=== PATIENT | male | born 1975 | race Caucasian/White ===

== ENCOUNTER 2019-11-07 09:31 | Outpatient (CLI) | payer OTHER ==
[2019-11-07] MEDS ORDERED: No meds per pt. (09:56)
== END 2019-11-07 23:59 | disposition home or self-care (01) ==
LOC: STAR 09:31
PROVIDERS: ATTEND Thoracic Surgery (Cardiothoracic Vascular Surgery)
DX: Z02.9 Encounter for administrative examinations, unspecified (principal)

== ENCOUNTER 2019-11-13 06:07 | Day surgery (SDC) | payer MEDICARE, OTHER ==
[2019-11-07 09:57] VITALS: BP 150/84
[~2019-11-13] VITALS: Ht 193 cm; Wt 103.7 kg
[~2019-11-13 06:07] MED LIST: No meds per pt.
[2019-11-13] MEDS ORDERED: BUPIVACAINE/PF 0.5% ONE (06:45)
[2019-11-13] MEDS ORDERED: EPINEPHRINE 1 MG/ML, 1ML ONE (06:45)
[2019-11-13] MEDS ORDERED: LACTATED RINGERS 1,000 ML IV SCH ×2 (07:15→09:42)
[2019-11-13] MEDS ORDERED: MIDAZOLAM 1 MG/ML, 2ML ONE (07:52)
[2019-11-13] MEDS ORDERED: FENTANYL PF 250 MCG/5ML ONE (07:52)
[2019-11-13] MEDS ORDERED: DEXAMETHASONE 4 MG/ML, 1ML ONE (08:39)
[2019-11-13] MEDS ORDERED: SUGAMMADEX 200 MG/2 ML IVPush ONE (08:39)
[2019-11-13] MEDS ORDERED: CEFAZOLIN 1,000 MG ONE (08:39)
[2019-11-13] MEDS ORDERED: ROCURONIUM 10 MG/ML,10ML ONE (08:39)
[2019-11-13] MEDS ORDERED: KETOROLAC 30 MG/1 ML ONE (08:39)
[2019-11-13] MEDS ORDERED: ONDANSETRON 2MG/ML, 2ML ONE (08:39)
[2019-11-13] MEDS ORDERED: SUCCINYLCHOLINE 20 MG/ML, 10ML ONE (08:39)
[2019-11-13] MEDS ORDERED: PROPOFOL 10 MG/ML, 20ML ONE (08:39)
[2019-11-13] MEDS ORDERED: KETOROLAC 30 MG/1 ML IV PRN (09:00)
[2019-11-13] MEDS ORDERED: ALBUTEROL SULFATE 2.5 MG/3 ML NPPB PRN (09:00)
[2019-11-13] MEDS ORDERED: PROMETHAZINE 25 MG/ML, 1ML IV PRN (09:00)
[2019-11-13] MEDS ORDERED: MEPERIDINE/PF 25MG/0.5ML IVPush PRN (09:00)
[2019-11-13] MEDS ORDERED: hydrALAzine 20 MG/ML, 1ML IV PRN (09:00)
[2019-11-13] MEDS ORDERED: LABETALOL 5MG/ML, 20ML IV PRN (09:00)
[2019-11-13] MEDS ORDERED: METOCLOPRAMIDE 5 MG/ML, 2ML IV PRN (09:00)
[2019-11-13] MEDS ORDERED: HYDROmorphone 1 MG/ML, 1ML INJ IV PRN (09:00)
[2019-11-13] MEDS ORDERED: FENTANYL PF 100 MCG/2ML IV PRN (09:00)
[2019-11-13] MEDS ORDERED: ONDANSETRON 2MG/ML, 2ML IVPush PRN ×2 (09:00→10:00)
[2019-11-13] MEDS ORDERED: DIAZEPAM 5 MG/ML, 2ML IV PRN ×2 (09:00)
[2019-11-13] MEDS ORDERED: OXYcodone 5 MG/5 ML ORAL.SOL UDC PO PRN (09:00)
[2019-11-13] MEDS ORDERED: ACETAMINOPHEN 650 MG/20.3 ML UDC ONE (09:58)
[2019-11-13] MEDS ORDERED: morphine SULFATE 10 MG/ML, 1ML IVPush PRN (10:00)
[2019-11-13] MEDS ORDERED: HYDROcodone/APAP 5/325 TABLET PO PRN (10:00)
[2019-11-13] MEDS ORDERED: ACETAMINOPHEN 650 MG/20.3 ML UDC PO PRN (10:00)
== END 2019-11-13 11:15 | disposition home or self-care (01) ==
LOC: OUT 06:07
PROVIDERS: ATTEND Thoracic Surgery (Cardiothoracic Vascular Surgery)
DX: K40.90 Unilateral inguinal hernia, without obstruction or gangrene, not specified as recurrent (principal); Z72.89 Other problems related to lifestyle; Z87.891 Personal history of nicotine dependence
CPT/HCPCS: 49650; C1781; J0171; J0330; J0690; J1100; J1885; J2250; J2405; J2704; J3010; J7120

== ENCOUNTER 2020-09-26 11:43 | Emergency (ER) | payer OTHER ==
[~2020-09-26] VITALS: Ht 182.9 cm; Wt 106.6 kg
--- NOTE | 2020-09-26 12:00 | NUR ---
LEFT FLANK PAIN STARTED TWO HOURS
[2020-09-26] MEDS ORDERED: ONDANSETRON 2MG/ML, 2ML ONE (12:09)
[2020-09-26] MEDS ORDERED: HYDROmorphone 1 MG/ML, 1ML INJ ONE (12:09)
[2020-09-26] MEDS ORDERED: KETOROLAC 30 MG/1 ML ONE (12:09)
--- NOTE | 2020-09-26 12:39 | NUR ---
BREAK RN NOTE: PT PRESENTS TO ED WITH LEFT FLANK PAIN X 2 HRS. PT A&O, RESPS EVEN AND UNLABORED, NADN. PIV PLACED, PT MEDICATED PER EMAR. BLOOD AND URINE SAMPLES SENT TO LAB. PT REPORTS COMPLETE RESOLUTION OF PAIN AT THIS TIME. BP AND SPO2 MONITORS IN PLACE. CALL LIGHT IN REACH. AWAITING CT AND DISPO, REPORT GIVEN BACK TO PRIMARY RN KYLAH.
[2020-09-26 12:50] LABS: BASOPHILS % (AUTO) 1 % (0-1); EOSINOPHILS % (AUTO) 0 % (1-7); LYMPHOCYTES % (AUTO) 32 % (22-44); MEAN CORPUSCULAR HEMOGLOBIN 30.5 pg (27.5-34.5); MEAN CORPUSCULAR HGB CONC 34.7 g/dL (33.2-36.2); MEAN PLATELET VOLUME 6.6 fL (7.4-10.4); MONOCYTES % (AUTO) 10 % (2-9); NEUTROPHILS % (AUTO) 58 % (42-75); PLATELET COUNT 264 x10^3/uL (130-400); RED BLOOD COUNT 5.44 x10^6/uL (4.38-5.82); RED CELL DISTRIBUTION WIDTH 12.9 % (9.4-14.8)
--- NOTE | 2020-09-26 12:53 | NUR ---
RETURNED FROM CT. STATES PAIN MUCH IMPROVED SINCE MEDICATED FOR SAME.
[2020-09-26 12:54] LABS: MD NO
--- NOTE | 2020-09-26 12:59 | NUR ---
REPORT TO DARRIUS NIETO
[2020-09-26] MEDS ORDERED: HYDROmorphone 2 MG/ML, 1ML IVPush PRN (13:00)
[2020-09-26] MEDS ORDERED: ONDANSETRON 2MG/ML, 2ML IVPush ONE (13:00)
[2020-09-26] MEDS ORDERED: KETOROLAC 30 MG/1 ML IVPush ONE (13:00)
[2020-09-26] MEDS ORDERED: SODIUM CHLORIDE FLUSH 10ML SYR IVF ONE (13:00)
[2020-09-26 13:02] LABS: ALANINE AMINOTRANSFERASE 40 U/L (12-78); ANION GAP 2 mmol/L (5-15); CALCIUM 8.8 mg/dL (8.5-10.1); CHLORIDE 110 mmol/L (98-107); CREATININE 1.12 mg/dL (0.7-1.3)
[2020-09-26 13:04] LABS: ALKALINE PHOSPHATASE 98 U/L (45-117); BILIRUBIN,TOTAL 0.7 mg/dL (0.2-1.0); TOTAL PROTEIN 7.7 g/dL (6.4-8.2)
[2020-09-26 13:09] LABS: MICROSCOPIC NOT IND
[2020-09-26 14:53] VITALS: BP 126/72
== END 2020-09-26 14:55 | disposition home or self-care (01) ==
LOC: ED 12:29
DX: R10.9 Unspecified abdominal pain (principal); M54.5 Low back pain; Z87.891 Personal history of nicotine dependence
CPT/HCPCS: 36415; 74176; 80053; 81003; 85025; 96374; 96375; 99284; J1170; J1885; J2405